=== PATIENT | female | born 1970 | race Asian ===

== ENCOUNTER 2016-10-28 22:51 | Emergency (ER) | payer BC, OTHER ==
[~2016-10-28] VITALS: Ht 175.3 cm; Wt 72.6 kg
[~2016-10-28 22:51] MED LIST: ALBU8HFA4; IBUP-1482 PO
--- NOTE | 2016-10-28 23:10 | NUR ---
Received patient from triage for neck pain, per pt she felt something strange (on her neck- base of her skull) after lifting the patient, denies numbness/tingling sensation, no n/v, she only felt warm sensation. AOX4 ambulatory.
--- NOTE | 2016-10-28 23:15 | NUR ---
Seen patient by Dr. Andrea.Awaits for orders
--- NOTE | 2016-10-29 00:10 | NUR ---
Came back from [place] via [facility].Pt resting comfortably.
--- NOTE | 2016-10-29 00:50 | NUR ---
discussed results to her. Given Ibuprofen as prescribed.
[2016-10-29] MEDS ORDERED: IBUPROFEN 800 MG TABLET PO ONE (01:00)
--- NOTE | 2016-10-29 01:00 | NUR ---
Patient discharged to home in stable conditon. Written and verbal after care instructions given. Patient verbalizes understanding of instructions.Work note given as well.
[2016-10-29] MEDS ORDERED: IBUPROFEN 800 MG TABLET ONE (01:07)
[2016-10-29] MEDS ORDERED: IV NORMAL SALINE 1000 ML BAG IV ONE (01:30)
[2016-10-29 01:34] VITALS: BP 133/80
== END 2016-10-29 01:00 | disposition home or self-care (01) ==
LOC: ER 22:51
DX: S13.9XXA Sprain of joints and ligaments of unspecified parts of neck, initial encounter (principal); J45.909 Unspecified asthma, uncomplicated; D64.9 Anemia, unspecified; R51 Headache; X50.0XXA Overexertion from strenuous movement or load, initial encounter; Y93.89 Activity, other specified; Y99.8 Other external cause status; Y92.89 Other specified places as the place of occurrence of the external cause
CPT/HCPCS: 70450; 72125; A4663

== ENCOUNTER 2017-08-07 15:23 | Emergency (ER) | payer BC, OTHER ==
[~2017-08-07] VITALS: Ht 175.3 cm; Wt 72.6 kg
[~2017-08-07 15:23] MED LIST changes: -IBUP-1482 PO; +IBUP800T54 PO
[2017-08-07] MEDS ORDERED: CYCLOBENZAPRINE HCL 10 MG TABLET PO ONE (15:45)
[2017-08-07] MEDS ORDERED: ACETAMINOPHEN ES 500 MG TABLET PO ONE (15:45)
--- NOTE | 2017-08-07 16:43 | NUR ---
PT SEEN BY MD. ALL MED GIVEN. PT INSTRUCTED, BY MD, NOT TO DRIVE. PT VERBALIZES UNDERSTANDING AND ALL OTHER DISCHARGE INSTRUCTIONS.
[2017-08-07 16:54] VITALS: BP 121/82
[2017-08-07] MEDS ORDERED: CYCLOBENZAPRINE HCL 10 MG TABLET ONE (16:55)
[2017-08-07] MEDS ORDERED: ACETAMINOPHEN ES 500 MG TABLET ONE (16:55)
== END 2017-08-07 16:54 | disposition home or self-care (01) ==
LOC: ER 15:24
DX: M54.2 Cervicalgia (principal); J45.909 Unspecified asthma, uncomplicated
CPT/HCPCS: 72125; 99284; A4663

== ENCOUNTER 2017-08-19 11:41 | Outpatient (CLI) | payer BC, OTHER ==
[2017-08-19 12:10] LABS: BASOPHILS % (AUTO) 0.7 % (0.0-2.0); EOSINOPHILS # (AUTO) 0.2 K/uL (0.0-0.7); EOSINOPHILS % (AUTO) 3.3 % (0.0-7.0); HEMATOCRIT 41.1 % (31.2-41.9); HEMOGLOBIN 13.8 g/dL (10.9-14.3); LYMPHOCYTES # (AUTO) 2.7 K/uL (20.0-40.0); LYMPHOCYTES % (AUTO) 35.4 % (20.5-51.5); MEAN CORPUSCULAR HEMOGLOBIN 29.8 uug (24.7-32.8); MEAN CORPUSCULAR HGB CONC 34 g/dL (32.3-35.6); MEAN CORPUSCULAR VOLUME 88.8 fL (75.5-95.3); MONOCYTES # (AUTO) 0.5 K/uL (2.0-10.0); MONOCYTES % (AUTO) 7.1 % (0.0-11.0); NEUTROPHILS % (AUTO) 53.5 % (38.5-71.5); PLATELET COUNT (AUTO) 235 K/uL (179-408); RED BLOOD CELL COUNT(AUTO) 4.63 MIL/uL (3.63-4.92); WHITE BLOOD COUNT (AUTO) 7.5 K/uL (3.8-11.8)
[2017-08-19 12:31] LABS: *BILIRUBIN,URIN NEGATIVE (NEGATIVE); *BLOOD, URINE 1+ (NEGATIVE); *CLARITY,URINE CLEAR (CLEAR); *COLOR,URINE YELLOW (YELLOW); *KETONES,URINE NEGATIVE (NEGATIVE); *PROTEIN,URINE NEGATIVE (NEGATIVE); *UROBILINOGEN,URINE 0.2 E.U./dl (NORMAL); LEUKOCYTE ESTERASE ,URINE NEGATIVE (NEGATIVE); NITRITE, URINE NEGATIVE (NEGATIVE); PH,URINE 5.5 (5.0-8.0); UGLUCOSE NEGATIVE (NEGATIVE)
[2017-08-19 12:44] LABS: BACTERIA,URINE FEW /HPF (NONE SEEN); MUCUS,URINE FEW /LPF (0-FEW); SQUAMOUS EPITHELIAL CELL,UR FEW /HPF (NONE SEEN); WBC,URINE 0-3 /HPF (0-3)
[2017-08-19 12:45] LABS: BILIRUBIN,TOTAL 0.3 mg/dL (0.2-1.0); CREATININE 0.8 mg/dL (0.6-1.3); TOTAL PROTEIN, SERUM 7.9 g/dL (6.4-8.2); URIC ACID 6.2 mg/dL (2.6-6.0)
== END 2017-08-19 23:59 | disposition home or self-care (01) ==
LOC: LAB 11:41
PROVIDERS: ATTEND Internal Medicine
DX: Z00.01 Encounter for general adult medical examination with abnormal findings (principal)
CPT/HCPCS: 36415; 82306; 84550; 85025; 87086